=== PATIENT | male | born 1950 ===

== ENCOUNTER 2017-06-15 15:07 | Inpatient (IN) | payer MEDICARE ==
--- NOTE | 2017-06-15 15:32 | C.PDOC ---
History Of Present Illness 67 year old male with a history of CVA in October 2016 presents to the ED with complaints of chest pain and back pain. HPI and ROS are per patient's daughter since patient has been non-verbal since CVA. Patient is able to respond to questions by shaking or nodding head. Patient's daughter states patient has had chest pain and back pain for 2 days and patient begins to yell when laying flat on his back. Family reports patient has been eating and drinking normally. Daughter denies fever, vomiting, diarrhea, or recent trauma. Time Seen by Provider: 06/15/17 15:24 Chief Complaint (Nursing): Chest Pain History Per: Family (daughter ) History/Exam Limitations: clinical condition (due to CVA in October 2016 patient is non-verbal and has right sided weakness ) Onset/Duration Of Symptoms: Unknown Associated Symptoms: denies: Diaphoresis, Syncope Recent travel outside of the [place]: No Past Medical History Reviewed: Historical Data, Nursing Documentation, Vital Signs Vital Signs: Last Vital Signs Temp 97.5 F L 06/15/17 15:15 Pulse 91 H 06/15/17 16:44 Resp 26 H 06/15/17 16:44 BP 126/81 06/15/17 16:44 Pulse Ox 96 06/15/17 18:07 - Medical History PMH: CVA, HTN, Hyperlipidemia Family History: States: Unknown Family Hx - Social History Hx Alcohol Use: No Hx Substance Use: No - Immunization History Hx Tetanus Toxoid Vaccination: No Hx Influenza Vaccination: No Hx Pneumococcal Vaccination: No Review Of Systems Review Of Systems: ROS cannot be obtained secondary to pt's inabilty to answer questions. (clinical condition, patient non-verbal. Able to understand questions and shake head, move arms in response) Cardiovascular: Positive for: Chest Pain Musculoskeletal: Positive for: Back Pain Physical Exam - Physical Exam Appears: Non-toxic, No Acute Distress, Other (Patient is morbidly obese ) Skin: Warm, Dry, No Rash Head: Atraumatic, Normacephalic, No Tenderness Eye(s): bilateral: Normal Inspection, PERRL, EOMI Oral Mucosa: Moist Neck: No Paracervical Tenderness, Supple Chest: Symmetrical, No Deformity, No Tenderness (no reproducible palpable tenderness ) Cardiovascular: Rhythm Regular, No Murmur Respiratory: No Rales, No Rhonchi, No Wheezing, Other (clear to auscultation bilaterally ) Gastrointestinal/Abdominal: Soft, No Tenderness, No Distention, No Guarding, No Rebound Back: No CVA Tenderness, No Vertebral Tenderness, No Muscle Spasm, No Paraspinal Tenderness Extremity: No Pedal Edema, No Calf Tenderness, Other ( trace right hand swelling ; stasis dermatitis to lower extremities) Pulses: Left Dorsalis Pedis: Normal, Right Dorsalis Pedis: Normal DTR: Bicep (R): 0 Neurological/Psych: No Normal Speech (patient non-verbal since previous CVA in October 2016), Other (right sided weakness since previous CVA in October 2016 ) ED Course And Treatment - Laboratory Results Result Diagrams: 06/15/17 16:07 06/15/17 16:07 Lab Interpretation: Abnormal ECG: Interpreted By Me, Viewed By Me O2 Sat by Pulse Oximetry: 96 (RA) Pulse Ox Interpretation: Normal - Radiology CXR: Viewed By Me, Read By Radiologist Progress Note: Blood work, labs, and CXR were ordered. Patient was given Aspirin. Medical Decision Making Medical Decision Making: Impression: Differential diagnosis includes but not limited to: Plan: * EKG * Labs * CXR Progress: EKG is NS at 88 bpm wit normal axis and no ST-T evaluation. Spoke with Dr Wilson who wants patient admitted to his service. Bridge orders placed. Disposition - Disposition Disposition: HOSPITALIZED Disposition Time: 17:00 Condition: STABLE - POA Present On Arrival: None - Clinical Impression Clinical Impression: Chest pain, H/O: CVA (cerebrovascular accident) - PA / DETAIL SERGEANT / Resident Statement / has reviewed & agrees with the documentation as recorded. - Scribe Statement The provider has reviewed the documentation as recorded by the Scribe Justine Recinos All medical record entries made by the Joseibe were at my direction and personally dictated by me. I have reviewed the chart and agree that the record accurately reflects my personal performance of the history, physical exam, medical decision making, and the department course for this patient. I have also personally directed, reviewed, and agree with the discharge instructions and disposition. Decision To Admit - Pt Status Changed To: Hospital Disposition Of: Observation - . Bed Request Type: Telemetry Admitting Physician: Harinder Wilson Patient Diagnosis: Chest pain, H/O: CVA (cerebrovascular accident)
[2017-06-15] MEDS ORDERED: Aspirin 325 mg EC Tablets PO STA (15:33)
[2017-06-15 16:13] LABS: BASO # 0.1 K/uL (0.0-0.2); BASO % 0.5 % (0.0-2.0); EOS # 0.6 K/uL (0.0-0.7); EOS % 5.3 % (0.0-4.0); HEMATOCRIT 45.7 % (35.0-51.0); LYMPH # 1.6 K/uL (1.0-4.3); MEAN CELL VOLUME 89.2 fL (80.0-94.0); MEAN CORPUSCULAR HEMOGLOBIN 29.5 pg (27.0-31.0); MEAN CORPUSCULAR HGB CONC 33.1 g/dL (33.0-37.0); MEAN PLATELET VOLUME 8.9 fL (7.2-11.7); MONO # 0.9 K/uL (0.0-0.8); MONO % 7.8 % (0.0-10.0); WHITE BLOOD COUNT 11.7 K/uL (4.8-10.8)
[2017-06-15 16:21] LABS: RBC URINE 5 /hpf (0-3); URINE BACTERIA OCC (<OCC); URINE BILIRUBIN NEGATIVE (NEGATIVE); URINE BLOOD NEGATIVE (NEGATIVE); URINE COLOR Yellow (YELLOW); URINE GLUCOSE (UA) NORMAL (Normal); URINE KETONE NEGATIVE (NEGATIVE); URINE LEUKOCYTE ESTERASE 1+ Leu/uL (Negative); URINE PROTEIN 1+ mg/dL (NEGATIVE); URINE UROBILINOGEN NORMAL mg/dL (0.2-1.0); WBC URINE 29 /hpf (0-5)
[2017-06-15 16:28] LABS: ALB/GLOB RATIO 1.2 (1.0-2.1); BILIRUBIN,TOTAL 0.9 mg/dL (0.2-1.3); CALCIUM 8.8 mg/dl (8.6-10.4); CHOLESTEROL 89 mg/dL (0-199); GFR AFRICAN-AMERICAN > 60; GLUCOSE,RANDOM 96 mg/dL (75-110); TOTAL PROTEIN 7.6 g/dL (6.3-8.3)
[2017-06-15 16:32] LABS: ALKALINE PHOSPHATASE 152 U/L (38-126); ALT/SGPT 29 U/L (21-72); AST/SGOT 23 U/L (17-59); BLOOD UREA NITROGEN 18 mg/dL (9-20); CARBON DIOXIDE 29 mmol/L (22-30); CHLORIDE 98 mmol/L (98-107); POTASSIUM 4.6 mmol/L (3.6-5.2); SODIUM 135 mmol/L (132-148)
--- NOTE | 2017-06-15 18:06 | CP.PCM.HP ---
History of Present Illness - History of Present Illness History of Present Illness: A 67 year old male with history of hypertension, CVA and right hemiparesis, sleep apnea since October 2016 came for chest pain and back pain. He just came from [place] to stay here. He is aphasic and his daughter gave a history. He had had chest pain for two day. Since October, he has been living at home and he is wheelchair bound. As per his daughter, he fell four days ago at home when he was moving from a wheelchair to bed, he fell. Since then he has been unable to lie flat due to back pain. He is not a smoker. He had worked in [employer] for 25 years of physical work. He is continent to both bowel and bladder. Present on Admission - Present on Admission Any Indicators Present on Admission: No History of DVT/PE: No History of Uncontrolled Diabetes: No Urinary Catheter: No Decubitus Ulcer Present: No Review of Systems - Constitutional Constitutional: Frequent Falls. absent: Chills, Fever - EENT Eyes: absent: Blurred Vision - Cardiovascular Cardiovascular: absent: Chest Pain - Respiratory Respiratory: absent: Cough, Dyspnea - Gastrointestinal Gastrointestinal: absent: Nausea, Vomiting - Genitourinary Genitourinary: absent: Change in Urinary Stream - Neurological Neurological: absent: Vertigo Past Patient History - Infectious Disease Hx of Infectious Diseases: None - Past Social History Smoking Status: Never Smoked - CARDIAC Hx Hypertension: Yes - NEUROLOGICAL HX Cerebrovascular Accident: Yes (right sided weakness) - PSYCHIATRIC Hx Substance Use: No - SURGICAL HISTORY Hx Surgeries: No - ANESTHESIA Hx Anesthesia: No Meds Allergies/Adverse Reactions: Allergies Allergy/AdvReac Type Severity Reaction Status Date / Time No Known Allergies Allergy Verified 06/15/17 15:15 Physical Exam - Constitutional Appears: No Acute Distress - Eye Exam Eye Exam: Normal appearance - ENT Exam ENT Exam: Mucous Membranes Moist - Neck Exam Neck exam: Positive for: Full Rom - Respiratory Exam Respiratory Exam: Clear to Auscultation Bilateral, NORMAL BREATHING PATTERN - Cardiovascular Exam Cardiovascular Exam: REGULAR RHYTHM. absent: Systolic Murmur - GI/Abdominal Exam GI & Abdominal Exam: Normal Bowel Sounds, Soft. absent: Tenderness - Extremities Exam Extremities exam: Positive for: normal inspection. Negative for: pedal edema - Back Exam Back exam: NORMAL INSPECTION - Neurological Exam Neurological exam: Motor Sensory Deficit (right hemiparesis) Results - Vital Signs Recent Vital Signs: Last Vital Signs Temp 97.5 F L 06/15/17 15:15 Pulse 91 H 06/15/17 16:44 Resp 26 H 06/15/17 16:44 BP 126/81 06/15/17 16:44 Pulse Ox 96 06/15/17 17:52 - Labs Result Diagrams: 06/15/17 16:07 06/15/17 16:07 Labs: Laboratory Results - last 24 hr 06/15/17 06/15/17 06/15/17 16:07 16:07 16:07 WBC 11.7 H RBC 5.13 Hgb 15.1 Hct 45.7 MCV 89.2 MCH 29.5 MCHC 33.1 RDW 15.0 H Plt Count 317 MPV 8.9 Neut % (Auto) 72.4 Lymph % (Auto) 14.0 L [place] % (Auto) 7.8 Eos % (Auto) 5.3 H Baso % (Auto) 0.5 Neut # 8.5 H Lymph # 1.6 [place] # 0.9 H Eos # 0.6 Baso # 0.1 PT 11.2 INR 1.0 APTT 34 Sodium Potassium Chloride Carbon Dioxide Anion Gap BUN Creatinine Est GFR ( Amer) Est GFR (Non-Af Amer) Random Glucose Calcium Total Bilirubin AST ALT Alkaline Phosphatase Total Creatine Kinase CK-MB (Mass) Troponin I NT-Pro-B Natriuret Pep Total Protein Albumin Globulin Albumin/Globulin Ratio Triglycerides Cholesterol LDL Cholesterol Direct HDL Cholesterol Urine Color Yellow Urine Clarity Hazy Urine pH 5.0 Ur Specific [place] 1.019 Urine Protein 1+ H Urine Glucose (UA) Normal Urine Ketones Negative Urine Blood Negative Urine Nitrate Negative Urine Bilirubin Negative Urine Urobilinogen Normal Ur Leukocyte Esterase 1+ H Urine WBC (Auto) 29 H Urine RBC (Auto) 5 H Ur Squamous Epith Cells < 1 Urine Bacteria Occ H 06/15/17 16:07 WBC RBC Hgb Hct MCV MCH MCHC RDW Plt Count MPV Neut % (Auto) Lymph % (Auto) [place] % (Auto) Eos % (Auto) Baso % (Auto) Neut # Lymph # [place] # Eos # Baso # PT INR APTT Sodium 135 Potassium 4.6 Chloride 98 Carbon Dioxide 29 Anion Gap 13 BUN 18 Creatinine 0.9 Est GFR ( Amer) > 60 Est GFR (Non-Af Amer) > 60 Random Glucose 96 Calcium 8.8 Total Bilirubin 0.9 AST 23 ALT 29 Alkaline Phosphatase 152 H Total Creatine Kinase 27 L CK-MB (Mass) < 0.22 Troponin I < 0.0120 NT-Pro-B Natriuret Pep 34.0 Total Protein 7.6 Albumin 4.1 Globulin 3.5 Albumin/Globulin Ratio 1.2 Triglycerides 136 Cholesterol 89 LDL Cholesterol Direct < 30 HDL Cholesterol 33 Urine Color Urine Clarity Urine pH Ur Specific [place] Urine Protein Urine Glucose (UA) Urine Ketones Urine Blood Urine Nitrate Urine Bilirubin Urine Urobilinogen Ur Leukocyte Esterase Urine WBC (Auto) Urine RBC (Auto) Ur Squamous Epith Cells Urine Bacteria Assessment & Plan - Assessment and Plan (Free Text) Assessment: chest pain R/O ACS - less likely history of HTN, CVA, right hemiparesis, DELORIS Plan: cardiology consult and work up. PT evaluation DVT prophylaxis - Date & Time Date: 06/15/17 Time: 18:10 Decision To Admit - Pt Status Changed To: Hospital Disposition Of: Inpatient - Admit Certification Admit to Inpatient:: After my assessment, the patient will require hospitalization for at least two midnights. This is because of the severity of symptoms shown, intensity of services needed, and/or the medical risk in this patient being treated as an outpatient. - InPatient: Physician Admission Certification:: as ordered - . Bed Request Type: Regular Admitting Physician: Harinder Wilson
[2017-06-16 08:20] LABS: HEMATOCRIT 43.3 % (35.0-51.0); MEAN CORPUSCULAR HEMOGLOBIN 29.8 pg (27.0-31.0); MEAN CORPUSCULAR HGB CONC 33.4 g/dL (33.0-37.0); MEAN PLATELET VOLUME 9.4 fL (7.2-11.7); RED CELL DISTRIBUTION WIDTH 14.8 % (11.5-14.5)
--- NOTE | 2017-06-16 08:46 | RAD ---
HISTORY: chest pain COMPARISON: 06/15/2017 FINDINGS: LUNGS: Mild venous congestion. Minimal patchy bibasilar atelectasis. PLEURA: No significant pleural effusion identified, no pneumothorax apparent. CARDIOVASCULAR: Cardiomegaly. OSSEOUS STRUCTURES: Degenerative changes in the spine and shoulders. VISUALIZED UPPER ABDOMEN: Normal. OTHER FINDINGS: None. IMPRESSION: Mild venous congestion. Minimal patchy bibasilar atelectasis.
[2017-06-16 08:59] LABS: ALB/GLOB RATIO 0.9 (1.0-2.1); ALKALINE PHOSPHATASE 146 U/L (38-126); ALT/SGPT 33 U/L (21-72); AST/SGOT 23 U/L (17-59); BILIRUBIN,TOTAL 0.6 mg/dL (0.2-1.3); BLOOD UREA NITROGEN 17 mg/dL (9-20); CALCIUM 8.5 mg/dl (8.6-10.4); CARBON DIOXIDE 26 mmol/L (22-30); CHLORIDE 101 mmol/L (98-107); CHOLESTEROL 86 mg/dL (0-199); GFR AFRICAN-AMERICAN > 60; GLUCOSE,RANDOM 82 mg/dL (75-110); POTASSIUM 4.2 mmol/L (3.6-5.2); SODIUM 135 mmol/L (132-148); TOTAL PROTEIN 7.9 g/dL (6.3-8.3)
--- NOTE | 2017-06-16 13:03 | CARD ---
APPROVED REPORT EXAM: Two-dimensional and M-mode echocardiogram with Doppler and color Doppler. Other Information Quality : GoodRhythm : INDICATION CVA/TIA Chest Pain Congestive Heart Failure 2D DIMENSIONS IVSd1.2 (0.7-1.1cm)LVDd4.9 (3.9-5.9cm) PWd1.1 (0.7-1.1cm)LVDs3.5 (2.5-4.0cm) FS (%) 29.5 %LVEF (%)56.3 (>50%) M-Mode DIMENSIONS Left Atrium (MM)3.77 (2.5-4.0cm)Aortic Root3.34 (2.2-3.7cm) Aortic Cusp Exc.1.77 (1.5-2.0cm) Mitral Valve MV E Dckvbzck35.2cm/sMV A Nedyrhui144.4cm/sE/A ratio0.7 TDI E/Lateral E'0.0E/Medial E'0.0 LEFT VENTRICLE There is normal left ventricular wall thickness. The left ventricular systolic function is normal. The left ventricular ejection fraction is within the normal range. There is normal LV segmental wall motion. Transmitral Doppler flow pattern is Grade I-abnormal relaxation pattern. Normal left atrial pressure by Tissue Doppler. RIGHT VENTRICLE The right ventricular systolic function is normal. ATRIA The left atrium size is normal. The right atrium is not well visualized. AORTIC VALVE The aortic valve is normal in structure. No aortic regurgitation is present. MITRAL VALVE The mitral valve is normal in structure. There is no mitral valve regurgitation noted. TRICUSPID VALVE The tricuspid valve leaflets are not well seen. There is no tricuspid valve regurgitation noted. PULMONIC VALVE The pulmonic valve is not well visualized. GREAT VESSELS The aortic root is normal in size. The IVC is normal in size and collapses >50% with inspiration. PERICARDIAL EFFUSION There is no pericardial effusion. <Conclusion> TECHNICALLY SUBOPTIMAL STUDY DUE TO POOR ACOUSTIC WINDOWS - IMAGES OFF AXIS The left ventricular systolic function is normal. Transmitral Doppler flow pattern is Grade I-abnormal relaxation pattern. Normal left atrial pressure by Tissue Doppler. The right ventricular systolic function is normal. No gross valvular abnormality. No pericardial effusion.
--- NOTE | 2017-06-16 18:33 | CP.PCM.PN ---
Subjective - Date & Time of Evaluation Date of Evaluation: 06/16/17 Time of Evaluation: 18:31 - Subjective Subjective: no chest pain daughter at bed side as per her, he has not had a BM for the last three days. Objective - Vital Signs/Intake and Output Vital Signs (last 24 hours): Temp Pulse Resp BP Pulse Ox 98.9 F 85 20 113/67 95 06/16/17 15:00 06/16/17 15:00 06/16/17 15:00 06/16/17 15:00 06/16/17 15:00 - Medications Medications: Current Medications Acetaminophen (Tylenol 325mg Tab) 650 mg PO Q6H PRN PRN Reason: Pain, Mild (1-3) Amlodipine Besylate (Norvasc) 10 mg PO DAILY [facility] Last Admin: 06/16/17 10:32 Dose: 10 mg Aspirin (Ecotrin) 81 mg PO DAILY [facility] Last Admin: 06/16/17 10:32 Dose: 81 mg Clopidogrel Bisulfate (Plavix) 75 mg PO DAILY [facility] Last Admin: 06/16/17 10:32 Dose: 75 mg Heparin Sodium (Porcine) (Heparin) 5,000 units SC Q12 [facility] Last Admin: 06/16/17 10:32 Dose: 5,000 units Lisinopril (Zestril) 20 mg PO DAILY [facility] Last Admin: 06/16/17 10:32 Dose: 20 mg Mirtazapine (Remeron) 15 mg PO HS [facility] Rosuvastatin Calcium (Crestor) 40 mg PO HS [facility] Last Admin: 06/15/17 22:24 Dose: 40 mg - Labs Labs: 06/16/17 08:13 06/16/17 08:13 PT 11.2 SECONDS (9.7-12.2) 06/15/17 16:07 INR 1.0 06/15/17 16:07 APTT 34 SECONDS (21-34) 06/15/17 16:07 - Constitutional Appears: No Acute Distress (right hemiparesis) - Respiratory Exam Respiratory Exam: Clear to Ausculation Bilateral. absent: Rales - Cardiovascular Exam Cardiovascular Exam: REGULAR RHYTHM. absent: Murmur - GI/Abdominal Exam GI & Abdominal Exam: Soft Assessment and Plan - Assessment and Plan (Free Text) Assessment: history of CVA, right hemiparesis, residual chest pain, ACS was ruled out history of hypertension, elevated cholesterol Plan: continue PT a placement to a rehab continue medicines add lactulose
--- NOTE | 2017-06-16 18:51 | RAD ---
PROCEDURE: Radiographs of the Lumbar Spine. HISTORY: back pain COMPARISON: No prior. FINDINGS: BONES: Normal alignment. No listhesis. No fracture. Diffuse osteopenia noted . DISC SPACES: Degenerative disc changes more prominent at L5-S1. OTHER FINDINGS: None. IMPRESSION: No evidence of acute fracture or subluxation mild degenerative disc changes more prominent at L5-S1.
--- NOTE | 2017-06-16 19:17 | CARD ---
APPROVED REPORT EKG Measurement Heart [id number] <Conclusion> Normal sinus rhythm Normal ECG
--- NOTE | 2017-06-16 23:47 | CON ---
DATE: CARDIOLOGY CONSULTATION REASON FOR CONSULTATION: Chest pain. HISTORY OF PRESENT ILLNESS: The patient is a 67 years old male with a history of CVA some 6 months ago in [place] that left him with residual right hemiplegia and expressive aphasia; however, the patient was being helped by his daughter at home and he was flown last Thursday to [place] to live with a cousin who is willing to take care of him. According to the patient's daughter at the bedside, the patient could not go to subacute rehab for a longer period of time because of insurance issue and the patient was brought to [place] and in the process of applying for [facility] medicaid. The patient did live before in [place] and worked in [place]. The patient was brought in according to the daughter because he was feeling weak and had chest and back pain. According to the daughter, the patient sustained a fall in [place], but no reported fractures. SOCIAL HISTORY: The patient is . He lives alone. He is a former smoker who he did not smoke heavily. PAST MEDICAL HISTORY: No prior cardiac history according to the daughter. MEDICATIONS: Crestor 40 mg once a day, aspirin 81 mg once a day, subcutaneous heparin 5000 units twice a day, Norvasc 10 mg once a day, Plavix 75 mg once a day, Zestril 20 mg once a day. PHYSICAL EXAMINATION: GENERAL: The patient is an elderly male, who does not appear to be in any acute distress. VITAL SIGNS: Blood pressure 112/70, heart rate 75, temperature 98.2, respirations 20. HEENT: nasolabial fold. NECK: No JVD. CHEST: Clear. HEART: S1, S2, regular. EXTREMITIES: No edema. LABORATORY DATA: SMA-7 today is within normal limit. One set of troponin is negative. ProBNP is within normal limits. Lipid profile is within normal limits. PT, PTT, INR are within normal limits. Today's hemoglobin, hematocrit, white count, and platelet count are within normal limits. EKG revealed normal sinus rhythm. Echocardiogram study performed yesterday revealed normal left ventricular systolic function, grade 1 abnormal relaxation pattern. Chest x-ray was unremarkable. ASSESSMENT: 1. Atypical chest pain. 2. History of cerebrovascular accident with residual right hemiplegia and expressive aphasia. 3. Hypertension. 4. Left ventricular diastolic dysfunction. 5. Low back pain. RECOMMENDATIONS: Continue Crestor, aspirin, subcutaneus heparin, Norvasc, Plavix, and Zestril. Obtain x-rays of the thoracolumbar spines. Brijesh Castillo MD
--- NOTE | 2017-06-17 02:43 | CON ---
NEUROLOGY CONSULTATION REPORT DATE: REASON FOR CONSULTATION: Weakness and history of stroke. HISTORY OF PRESENT ILLNESS: The patient is a 67-year-old male who has been asked for evaluation of a recent stroke. The patient apparently had stroke with right-sided weakness. The patient just came from [place]. The patient is aphasic, so history is mainly from the chart. The patient was experiencing chest pain. Patient lives at home and is wheelchair bound. Yesterday, patient was trying to move from wheelchair to bed and he fell. Patient does have right-sided weakness. REVIEW OF SYSTEMS: Unable to obtain because of patient's aphasia; however, patient does not have any cough, no sputum production, no diarrhea. Positive for back pain. Positive for right-sided weakness. PAST MEDICAL HISTORY: Includes cerebrovascular accident, hypertension, sleep apnea. MEDICATIONS AT HOME: Included Lipitor, Norvasc, mirtazapine, lisinopril, and Plavix. ALLERGIES: NO KNOWN DRUG ALLERGIES. SOCIAL HISTORY: Patient is a nonsmoker, socially drinks alcohol, and there is no use of illicit drugs. FAMILY HISTORY: Reviewed and noncontributory to the case. PHYSICAL EXAMINATION: GENERAL: The patient is an elderly male, lying on the bed in no acute distress. VITAL SIGNS: Blood pressure is 113/67, heart rate is 85 per minute, breathing at the rate of 16 per minute, and temperature is 98.9 degrees Fahrenheit. HEENT: Head is normocephalic and atraumatic. NECK: Supple. There are no carotid bruits. LUNGS: Clear. CARDIOVASCULAR: S1 and S2 audible. No murmurs. ABDOMEN: Soft and nontender. Bowel sounds present. NEUROLOGY EXAMINATION: Mental status: The patient is awake and alert. He follows simple commands. He is aphasic. He has expressive aphasia. Cranial nerve examination: Pupils are 3 mm bilaterally, reactive to light. Visual almendarez are full. Extraocular movements are intact. There is decreased nasolabial fold on the right side. Tone is increased on the right side. There is right-sided hemiparesis. Power in the right upper extremity is 0/5. Power in the right lower extremity is 1/5. Reflexes are brisk on the right side. Plantars are upgoing on the right and downgoing on the left side. Gait is untestable because of right hemiparesis. LABORATORY DATA: The labs reviewed, which showed WBC of 9.0 , hemoglobin 14.5, hematocrit 43.3, and platelets of 266. Sodium is 135, potassium 4.2, chloride 101, carbon dioxide 26, BUN of 17, creatinine 1.0, and glucose of 82. IMPRESSION: Old cerebrovascular accident with right-sided hemiparesis and aphasia. RECOMMENDATIONS: 1. Patient to be continued on Plavix. We will stop aspirin, which was added to his regimen as it does not appear that patient has full stroke. 2. Patient to be continued on statin. 3. Patient may benefit from physical therapy as they may teach him how to transfer from wheelchair to the bed and bed to the wheelchair. 4. No further neurologic recommendations at present. Please call Neurology on an as-needed basis. Thank you for the opportunity to participate in the care of this patient. Lashell Salcedo MD
--- NOTE | 2017-06-17 09:51 | RAD ---
HISTORY: back pain COMPARISON: No prior. FINDINGS: BONES: Normal thoracic curvature is identified with some anterior wedging seen at the T8 vertebral body potentially reflecting a mild compression fracture. Ages fracture would be indeterminate. Multilevel spondylosis appears relatively advanced and diffuse this visually most inferior of thoracic levels including pressure T9-10 level. No destructive bony lesion appreciable. No spondylolisthesis. DISC SPACES: Discussed above. SOFT TISSUES: Normal. OTHER FINDINGS: None. IMPRESSION: Mild 5th mildly sensitive thoracic curvature appreciated on the basis of possible T8 compression fracture which is indeterminate in age. No spondylolisthesis or destructive bone lesion. Multilevel spondylosis appears relatively advanced at the mid to inferior thoracic spine.
--- NOTE | 2017-06-17 17:43 | CP.PCM.PN ---
Subjective - Date & Time of Evaluation Date of Evaluation: 06/17/17 Time of Evaluation: 17:40 - Subjective Subjective: no bowel movement for the last four days lying on bed family at bed side right hemiparesis, aphasia Objective - Vital Signs/Intake and Output Vital Signs (last 24 hours): Temp Pulse Resp BP Pulse Ox 98.5 F 86 22 116/76 98 06/17/17 16:00 06/17/17 16:00 06/17/17 16:00 06/17/17 16:00 06/17/17 16:00 Intake and Output: 06/17/17 06/17/17 06:59 18:59 Intake Total 240 400 Balance 240 400 - Medications Medications: Current Medications Acetaminophen (Tylenol 325mg Tab) 650 mg PO Q6H PRN PRN Reason: Pain, Mild (1-3) Last Admin: 06/17/17 14:56 Dose: 650 mg Amlodipine Besylate (Norvasc) 10 mg PO DAILY [facility] Last Admin: 06/17/17 09:38 Dose: 10 mg Clopidogrel Bisulfate (Plavix) 75 mg PO DAILY [facility] Last Admin: 06/17/17 09:38 Dose: 75 mg Docusate Sodium (Colace) 100 mg PO BID [facility] Last Admin: 06/17/17 09:38 Dose: 100 mg Heparin Sodium (Porcine) (Heparin) 5,000 units SC Q12 [facility] Last Admin: 06/17/17 09:40 Dose: 5,000 units Lactulose (Enulose) 20 gm PO HS [facility] Last Admin: 06/16/17 22:30 Dose: Not Given Lisinopril (Zestril) 20 mg PO DAILY [facility] Last Admin: 06/17/17 09:38 Dose: 20 mg Mirtazapine (Remeron) 15 mg PO HS [facility] Last Admin: 06/16/17 21:41 Dose: 15 mg Rosuvastatin Calcium (Crestor) 40 mg PO HS [facility] Last Admin: 06/16/17 21:41 Dose: 40 mg - Labs Labs: 06/16/17 08:13 06/16/17 08:13 PT 11.2 SECONDS (9.7-12.2) 06/15/17 16:07 INR 1.0 06/15/17 16:07 APTT 34 SECONDS (21-34) 06/15/17 16:07 - Constitutional Appears: No Acute Distress - Respiratory Exam Respiratory Exam: Clear to Ausculation Bilateral, NORMAL BREATHING PATTERN - Cardiovascular Exam Cardiovascular Exam: REGULAR RHYTHM. absent: Murmur - Neurological Exam Neuro motor strength exam: Left Upper Extremity: 5, Right Upper Extremity: 2/1, Left Lower Extremity: 5, Right Lower Extremity: 2/1 Assessment and Plan - Assessment and Plan (Free Text) Assessment: history of CVA with residual right hemiplegia atypical chest pain constipation Plan: as per neurology and cardiology input continue medications PT placement add dulcolax suppository
--- NOTE | 2017-06-17 20:48 | PN ---
FOLLOWUP DATE: SUBJECTIVE: The patient denies any chest pain. PHYSICAL EXAMINATION: VITAL SIGNS: Blood pressure 116/76, heart rate 86, temperature 98.5, respirations 22. HEENT: Loss of right nasolabial fold. NECK: No JVD. CHEST: Clear. HEART: S1 and S2 regular. EXTREMITIES: No edema. LABORATORY DATA: No new labs for today. Echo report: Normal left ventricular systolic function. Grade I abnormal relaxation pattern. Normal right ventricular systolic function. No gross valvular abnormality. ASSESSMENT: 1. 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 2. Atypical chest pain. 3. Hypertension. 4. Low back pain. RECOMMENDATIONS: I did review the x-ray of the thoracic and lumbar spine and the dorsal spine x-ray reported possible T8 compression fracture, which is indeterminate age. spondylosis. No evidence of acute lumbar fracture or subluxation. Continue current Crestor 40 mg once a day, heparin 5000 units subcutaneous q. 12 hours, Norvasc 10 mg once a day, Plavix 75 mg once a day and Zestril 20 mg once a day. I did review the neurology consultation and Dr. Lashell Salcedo recommended continuation of Plavix, statin and offered neuro workup. Recommended at present time. Brijesh Castillo MD
--- NOTE | 2017-06-18 16:45 | CT ---
PROCEDURE: CT Thoracic Spine without contrast HISTORY: r/o Fx COMPARISON: None. TECHNIQUE: Axial computed tomography images were obtained of the thoracic spine without intravenous contrast. Coronal and sagittal reformatted images were created and reviewed. Radiation dose: Total exam DLP = 1332.86 mGy-cm. This CT exam was performed using one or more of the following dose reduction techniques: Automated exposure control, adjustment of the mA and/or kV according to patient size, and/or use of iterative reconstruction technique. FINDINGS: VERTEBRAE: Unremarkable. No fracture. Normal alignment. DISCS/SPINAL CANAL/NEURAL FORAMINA: Within the limits of the CT technique, no disc herniation seen. No central canal or neural foraminal stenosis.. PARASPINAL SOFT TISSUES: Unremarkable. OTHER FINDINGS: Cardiomegaly is noted.. IMPRESSION: No CT evidence of acute fracture or subluxation at the thoracic spine
--- NOTE | 2017-06-18 17:07 | PN ---
SUBJECTIVE: The patient denies any chest pain. PHYSICAL EXAMINATION: VITAL SIGNS: Blood pressure 135/77, heart rate 82, temperature 97.9 and respirations 20. HEENT: Loss of right nasolabial fold. CHEST: Clear. HEART: S1 and S2 regular. EXTREMITIES: No edema. ASSESSMENT: 1. Status post cerebrovascular accident with residual right hemiparesis and expressive aphasia. 2. Atypical chest pain. 3. Hypertension. 4. Possible T8 compression fracture. RECOMMENDATIONS: Continue current Colace, subcutaneous heparin, Lovenox, Plavix and Zestril. Obtain CT scan of the thoracic spine. Brijesh Castillo MD
--- NOTE | 2017-06-18 21:29 | CP.PCM.PN ---
Subjective - Date & Time of Evaluation Date of Evaluation: 06/18/17 Time of Evaluation: 11:30 - Subjective Subjective: constipation aphasic Objective - Vital Signs/Intake and Output Vital Signs (last 24 hours): Temp Pulse Resp BP Pulse Ox 97.5 F L 89 20 130/85 96 06/18/17 16:34 06/18/17 16:34 06/18/17 16:34 06/18/17 16:34 06/18/17 16:34 Intake and Output: 06/18/17 06/19/17 18:59 06:59 Intake Total 500 Balance 500 - Medications Medications: Current Medications Acetaminophen (Tylenol 325mg Tab) 650 mg PO Q6H PRN PRN Reason: Pain, Mild (1-3) Last Admin: 06/17/17 14:56 Dose: 650 mg Amlodipine Besylate (Norvasc) 10 mg PO DAILY [facility] Last Admin: 06/18/17 10:51 Dose: 10 mg Clopidogrel Bisulfate (Plavix) 75 mg PO DAILY [facility] Last Admin: 06/18/17 10:51 Dose: 75 mg Docusate Sodium (Colace) 100 mg PO BID [facility] Last Admin: 06/18/17 21:16 Dose: 100 mg Heparin Sodium (Porcine) (Heparin) 5,000 units SC Q12 [facility] Last Admin: 06/18/17 21:16 Dose: 5,000 units Lactulose (Enulose) 20 gm PO BID [facility] Last Admin: 06/18/17 21:16 Dose: Not Given Lisinopril (Zestril) 20 mg PO DAILY [facility] Last Admin: 06/18/17 10:51 Dose: 20 mg Mirtazapine (Remeron) 15 mg PO HS [facility] Last Admin: 06/18/17 21:17 Dose: 15 mg Rosuvastatin Calcium (Crestor) 40 mg PO HS [facility] Last Admin: 06/18/17 21:16 Dose: 40 mg - Labs Labs: 06/16/17 08:13 06/16/17 08:13 PT 11.2 SECONDS (9.7-12.2) 06/15/17 16:07 INR 1.0 06/15/17 16:07 APTT 34 SECONDS (21-34) 06/15/17 16:07 - Constitutional Appears: No Acute Distress - Respiratory Exam Respiratory Exam: Clear to Ausculation Bilateral, NORMAL BREATHING PATTERN. absent: Rales - Cardiovascular Exam Cardiovascular Exam: REGULAR RHYTHM. absent: Murmur - GI/Abdominal Exam GI & Abdominal Exam: Soft. absent: Tenderness Assessment and Plan - Assessment and Plan (Free Text) Assessment: chest pain ACS ruled out history of CVA and right hemiparesis aphasia Plan: continue plavix PT waiting for a placement
--- NOTE | 2017-06-19 08:00 | CP.PCM.PN ---
Subjective - Date & Time of Evaluation Date of Evaluation: 06/19/17 Time of Evaluation: 08:05 - Subjective Subjective: no complaint constipation right hemiparesis no chest pain Objective - Vital Signs/Intake and Output Vital Signs (last 24 hours): Temp Pulse Resp BP Pulse Ox 98.6 F 75 20 121/71 97 06/19/17 00:10 06/19/17 03:53 06/19/17 00:10 06/19/17 00:10 06/19/17 00:10 Intake and Output: 06/19/17 06/19/17 06:59 18:59 Output Total 500 Balance -500 - Medications Medications: Current Medications Acetaminophen (Tylenol 325mg Tab) 650 mg PO Q6H PRN PRN Reason: Pain, Mild (1-3) Last Admin: 06/17/17 14:56 Dose: 650 mg Amlodipine Besylate (Norvasc) 10 mg PO DAILY [facility] Last Admin: 06/18/17 10:51 Dose: 10 mg Clopidogrel Bisulfate (Plavix) 75 mg PO DAILY [facility] Last Admin: 06/18/17 10:51 Dose: 75 mg Docusate Sodium (Colace) 100 mg PO BID [facility] Last Admin: 06/18/17 21:16 Dose: 100 mg Lactulose (Enulose) 20 gm PO BID [facility] Last Admin: 06/18/17 21:16 Dose: Not Given Lisinopril (Zestril) 20 mg PO DAILY [facility] Last Admin: 06/18/17 10:51 Dose: 20 mg Mirtazapine (Remeron) 15 mg PO [facility] Last Admin: 06/18/17 21:17 Dose: 15 mg Rosuvastatin Calcium (Crestor) 40 mg PO [facility] Last Admin: 06/18/17 21:16 Dose: 40 mg - Labs Labs: 06/16/17 08:13 06/16/17 08:13 PT 11.2 SECONDS (9.7-12.2) 06/15/17 16:07 INR 1.0 06/15/17 16:07 APTT 34 SECONDS (21-34) 06/15/17 16:07 - Constitutional Appears: No Acute Distress - Respiratory Exam Respiratory Exam: Clear to Ausculation Bilateral - Cardiovascular Exam Cardiovascular Exam: REGULAR RHYTHM. absent: Murmur Assessment and Plan - Assessment and Plan (Free Text) Assessment: atypical chest pain hypertension history of CVA, right hemiparesis Plan: continue PT plavix a group home placement
--- NOTE | 2017-06-19 12:00 | CP.PCM.PN ---
Subjective - Date & Time of Evaluation Date of Evaluation: 06/19/17 Time of Evaluation: 12:00 - Subjective Subjective: PT BOY BY DR. LAMAR AND CLEARED FOR D/C TODAY. WILL GO UNDER THE SERVICE OF DR. GARDUNO AT [facility]. DR. GARDUNO AWARE OF PT AND IN AGREEMENT WITH PLAN. HE WILL F/U WITH HER THERE. SW TO ARRANGE TRANSPORTATION. NO FURTHER ORDERS. Objective - Vital Signs/Intake and Output Vital Signs (last 24 hours): Temp Pulse Resp BP Pulse Ox 97.6 F 76 20 152/69 H 97 06/19/17 09:15 06/19/17 09:15 06/19/17 09:15 06/19/17 09:15 06/19/17 09:15 Intake and Output: 06/19/17 06/19/17 06:59 18:59 Output Total 500 Balance -500 - Medications Medications: Current Medications Acetaminophen (Tylenol 325mg Tab) 650 mg PO Q6H PRN PRN Reason: Pain, Mild (1-3) Last Admin: 06/17/17 14:56 Dose: 650 mg Amlodipine Besylate (Norvasc) 10 mg PO DAILY [facility] Last Admin: 06/19/17 10:47 Dose: 10 mg Clopidogrel Bisulfate (Plavix) 75 mg PO DAILY [facility] Last Admin: 06/19/17 10:47 Dose: 75 mg Docusate Sodium (Colace) 100 mg PO BID [facility] Last Admin: 06/19/17 10:47 Dose: 100 mg Lactulose (Enulose) 20 gm PO BID [facility] Last Admin: 06/19/17 10:47 Dose: 20 gm Lisinopril (Zestril) 20 mg PO DAILY [facility] Last Admin: 06/19/17 10:47 Dose: 20 mg Mirtazapine (Remeron) 15 mg PO HS [facility] Last Admin: 06/18/17 21:17 Dose: 15 mg Rosuvastatin Calcium (Crestor) 40 mg PO HS [facility] Last Admin: 06/18/17 21:16 Dose: 40 mg - Labs Labs: 06/16/17 08:13 06/16/17 08:13 PT 11.2 SECONDS (9.7-12.2) 06/15/17 16:07 INR 1.0 06/15/17 16:07 APTT 34 SECONDS (21-34) 06/15/17 16:07
--- NOTE | 2017-06-19 12:04 | PCM.HF ---
Heart Failure Core Measure - Heart Failure Ejection Fraction: 40 % or Greater YENNIFER Inhibitor Prescribed: Yes Beta-Fallon Prescribed: None Contraindication/Reason for not providing: EF "NORMAL" ON ECHO REPORT Angiotensin II Receptor Fallon Prescribed: No Contraindication/Reason for not providing: ON YENNIFER AnticoagulationTherapy for Atrial Fibrillation/Atrialflutter: No Contraindication/Reason for not providing: NO AFIB Aldosterone Antagonist Prescribed: No Contraindication/Reason for not providing: EF "NORMAL" ON ECHO REPORT Hydralazine Nitrate Prescribed: No Contraindication/Reason for not providing: EF "NORMAL" ON ECHO REPORT Implantable Cardioverter Defibrillator Therapy: No Contraindication/Reason for not providing: EF "NORMAL" ON ECHO REPORT Cardiac Resynchronization Therapy Prescribed: No Contraindication/Reason for not providing: EF "NORMAL" ON ECHO REPORT - Follow up Will be discharged to: [facility]) Follow Up Date (must be within 7 days from discharge): 06/22/17 Follow Up Time: 09:00
--- NOTE | 2017-06-19 14:59 | PN ---
SUBJECTIVE: The patient has expressive aphasia. Denies chest pain. PHYSICAL EXAMINATION: VITAL SIGNS: Blood pressure 152/69, heart rate 76, temperature 97.6 and respirations 20. HEENT: Loss of right nasolabial fold. CHEST: Clear. HEART: S1 and S2 regular. EXTREMITIES: No edema. Thoracic spine CT scan, no evidence of acute fracture or subluxation. ASSESSMENT: 1. History of recent cerebrovascular accident 6 months ago with residual right hemiplegia and expressive aphasia. 2. Hypertension. RECOMMENDATIONS: Continue Crestor 40 mg once a day, Norvasc 10 mg once a day, Plavix 75 mg once a day, Zestril 20 mg once a day. The patient will be transferred to [facility] subacute rehab today. Brijesh Castillo MD
[2017-06-19 17:30] VITALS: BP 110/69; PULSE 85; RESP 18; TEMP 98.4; O2SAT 95
--- NOTE | 2017-06-21 11:06 | CP.PCM.DIS ---
Provider - Provider Date of Admission: 06/16/17 11:05 Attending physician: Harinder Wilson MD Primary care physician: A 67 year old male with history of hypertension, CVA and right hemiparesis, sleep apnea since October 2016 came for chest pain and back pain. He just came from [place] to stay here. He is aphasic and his daughter gave a history. He had had chest pain for two day. Since October, he has been living at home and he is wheelchair bound. As per his daughter, he fell four days ago at home when he was moving from a wheelchair to bed, he fell. Since then he has been unable to lie flat due to back pain. He is not a smoker. 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 He is continent to both bowel and bladder. Time Spent in preparation of Discharge (in minutes): 30 Diagnosis - Discharge Diagnosis (1) Chest pain Status: Acute (2) H/O: CVA (cerebrovascular accident) Status: Acute Hospital Course - Lab Results Lab Results: Most Recent Lab Values WBC 9.0 K/uL (4.8-10.8) 06/16/17 08:13 RBC 4.86 Mil/uL (4.40-5.90) 06/16/17 08:13 Hgb 14.5 g/dL (12.0-18.0) 06/16/17 08:13 Hct 43.3 % (35.0-51.0) 06/16/17 08:13 MCV 89.0 fL (80.0-94.0) 06/16/17 08:13 MCH 29.8 pg (27.0-31.0) 06/16/17 08:13 MCHC 33.4 g/dL (33.0-37.0) 06/16/17 08:13 RDW 14.8 % (11.5-14.5) H 06/16/17 08:13 Plt Count 266 K/uL (130-400) 06/16/17 08:13 MPV 9.4 fL (7.2-11.7) 06/16/17 08:13 Neut % (Auto) 72.4 % (50.0-75.0) 06/15/17 16:07 Lymph % (Auto) 14.0 % (20.0-40.0) L 06/15/17 16:07 [place] % (Auto) 7.8 % (0.0-10.0) 06/15/17 16:07 Eos % (Auto) 5.3 % (0.0-4.0) H 06/15/17 16:07 Baso % (Auto) 0.5 % (0.0-2.0) 06/15/17 16:07 Neut # 8.5 K/uL (1.8-7.0) H 06/15/17 16:07 Lymph # 1.6 K/uL (1.0-4.3) 06/15/17 16:07 [place] # 0.9 K/uL (0.0-0.8) H 06/15/17 16:07 Eos # 0.6 K/uL (0.0-0.7) 06/15/17 16:07 Baso # 0.1 K/uL (0.0-0.2) 06/15/17 16:07 PT 11.2 SECONDS (9.7-12.2) 06/15/17 16:07 INR 1.0 06/15/17 16:07 APTT 34 SECONDS (21-34) 06/15/17 16:07 Sodium 135 mmol/L (132-148) 06/16/17 08:13 Potassium 4.2 mmol/L (3.6-5.2) 06/16/17 08:13 Chloride 101 mmol/L (98-107) 06/16/17 08:13 Carbon Dioxide 26 mmol/L (22-30) 06/16/17 08:13 Anion Gap 13 (10-20) 06/16/17 08:13 BUN 17 mg/dL (9-20) 06/16/17 08:13 Creatinine 1.0 mg/dL (0.8-1.5) 06/16/17 08:13 Est GFR ( Amer) > 60 06/16/17 08:13 Est GFR (Non-Af Amer) > 60 06/16/17 08:13 Random Glucose 82 mg/dL (75-110) 06/16/17 08:13 Calcium 8.5 mg/dl (8.6-10.4) L 06/16/17 08:13 Total Bilirubin 0.6 mg/dL (0.2-1.3) 06/16/17 08:13 GGT 43 U/L (8-78) 06/18/17 07:17 AST 23 U/L (17-59) 06/16/17 08:13 ALT 33 U/L (21-72) 06/16/17 08:13 Alkaline Phosphatase 146 U/L (38-126) H 06/16/17 08:13 Total Creatine Kinase 27 U/L (55-170) L 06/15/17 16:07 CK-MB (Mass) < 0.22 ng/mL (0.0-3.38) 06/15/17 16:07 Troponin I < 0.0120 ng/mL (0.00-0.120) 06/15/17 16:07 NT-Pro-B Natriuret Pep 34.0 pg/mL (0-900) 06/15/17 16:07 Total Protein 7.9 g/dL (6.3-8.3) 06/16/17 08:13 Albumin 3.7 g/dL (3.5-5.0) 06/16/17 08:13 Globulin 4.2 gm/dL (2.2-3.9) H 06/16/17 08:13 Albumin/Globulin Ratio 0.9 (1.0-2.1) L 06/16/17 08:13 Triglycerides 116 mg/dL (0-149) 06/16/17 08:13 Cholesterol 86 mg/dL (0-199) 06/16/17 08:13 LDL Cholesterol Direct < 30 mg/dL (0-129) 06/16/17 08:13 HDL Cholesterol 32 mg/dL (30-70) 06/16/17 08:13 Urine Color Yellow (YELLOW) 06/15/17 16:07 Urine Clarity Hazy (Clear) 06/15/17 16:07 Urine pH 5.0 (5.0-8.0) 06/15/17 16:07 Ur Specific [place] 1.019 (1.003-1.030) 06/15/17 16:07 Urine Protein 1+ mg/dL (NEGATIVE) H 06/15/17 16:07 Urine Glucose (UA) Normal mg/dL (Normal) 06/15/17 16:07 Urine Ketones Negative mg/dL (NEGATIVE) 06/15/17 16:07 Urine Blood Negative (NEGATIVE) 06/15/17 16:07 Urine Nitrate Negative (NEGATIVE) 06/15/17 16:07 Urine Bilirubin Negative (NEGATIVE) 06/15/17 16:07 Urine Urobilinogen Normal mg/dL (0.2-1.0) 06/15/17 16:07 Ur Leukocyte Esterase 1+ Ruel/uL (Negative) H 06/15/17 16:07 Urine WBC (Auto) 29 /hpf (0-5) H 06/15/17 16:07 Urine RBC (Auto) 5 /hpf (0-3) H 06/15/17 16:07 Ur Squamous Epith Cells < 1 /hpf (0-5) 06/15/17 16:07 Urine Bacteria Occ (<OCC) H 06/15/17 16:07 - Hospital Course Hospital Course: ACS was ruled out by 3 x negative troponin. had a PT eval. [facility] [place]. - Date & Time of H&P Date of H&P: 06/21/17 Time of H&P: 11:06 Discharge Plan - Follow Up Plan Condition: STABLE Disposition: HOME/ ROUTINE Instructions: Heart Failure (DC), Heart Failure (GEN), Stroke (GEN) Additional Instructions: PLACE UNDER THE SERVICE OF DR. GARDUNO WHILE AT [facility]---CALL UPON ARRIVAL FOR BED ASSIGNMENT AND ADMITTING ORDERS. CONTINUE ALL MEDICATIONS PER THE MED REC FORM---CHANGES CAN BE MADE BY ATTENDING. PHYSICAL THERAPY TOLERATED. FALL PRECAUTIONS PER FACILITY PROTOCOL. FOR FURTHER ORDERS, CONTACT DR. GARDUNO'S SERVICE. Referrals: Brijesh Castillo MD [Staff Provider] - Lashell Salcedo MD [Staff Provider] - Harinder Wilson MD [Staff Provider] - [place] MD [Staff Provider] -
== END 2017-06-19 17:35 | disposition home or self-care (01) | DRG 313 ==
LOC: C.ER 15:07 → C.9E 17:07 → C.6T 22:02 → OBSVTOIN 06-16 11:05 → C.6T 06-16 14:54
PROVIDERS: ADMIT Internal Medicine; ATTEND Internal Medicine
DX: R07.89 Other chest pain (principal); I69.351 Hemiplegia and hemiparesis following cerebral infarction affecting right dominant side; I69.320 Aphasia following cerebral infarction; G47.33 Obstructive sleep apnea (adult) (pediatric); Z99.3 Dependence on wheelchair; I10 Essential (primary) hypertension; E78.00 Pure hypercholesterolemia, unspecified; K59.00 Constipation, unspecified; M54.5 Low back pain